=== PATIENT | female | born 1945 | race Two or more races ===

== ENCOUNTER 2017-01-05 16:44 | Emergency (ER) | payer MEDICARE, OTHER ==
[~2017-01-05] VITALS: Ht 162.6 cm; Wt 72.6 kg
[2017-01-05 16:45] VITALS: BP 100/56
[2017-01-05] MEDS ORDERED: LACT1CAP2 PO (17:56)
[2017-01-05] MEDS ORDERED: CHOL500016 PO (17:56)
[2017-01-05] MEDS ORDERED: DIVA500T2 PO (17:56)
[2017-01-05] MEDS ORDERED: PANT40TA5 PO (17:56)
[2017-01-05] MEDS ORDERED: POTASSIUM CHLO10 MEQ PO (17:56)
[2017-01-05] MEDS ORDERED: MULT1TAB90 PO (17:56)
[2017-01-05] MEDS ORDERED: METH113C6 TP (17:56)
[2017-01-05] MEDS ORDERED: CITA20TA5 PO (17:56)
[2017-01-05] MEDS ORDERED: POLY17PO3 PO (17:56)
[2017-01-05] MEDS ORDERED: RIVA1PAT22 TP (17:56)
[2017-01-05] MEDS ORDERED: DIVA250T PO (17:56)
[2017-01-05] MEDS ORDERED: RISP0.5T3 PO (17:56)
[2017-01-05] MEDS ORDERED: SELE180S3 TP (17:56)
[2017-01-05] MEDS ORDERED: MIRT15TA3 PO (17:56)
[2017-01-05] MEDS ORDERED: OLAN2.5T3 PO (17:56)
[2017-01-05] MEDS ORDERED: OLAN5TAB9 PO (17:56)
[2017-01-05] MEDS ORDERED: SENN-79 PO (17:56)
[2017-01-05] MEDS ORDERED: INSU100I17 SQ (17:56)
[2017-01-05] MEDS ORDERED: INSU100I27 SQ (17:56)
[2017-01-05] MEDS ORDERED: GABA-585 PO (17:56)
[2017-01-05] MEDS ORDERED: MAG-27 PO (17:56)
[2017-01-05] MEDS ORDERED: LINA5TAB4 PO (17:56)
[2017-01-05 18:37] LABS: BASO % 1 % (0-3); EOS % 4 % (0-3); HEMATOCRIT 36.2 % (36.0-47.0); HEMOGLOBIN 12.2 g/dL (12.0-15.5); LYMPH # 2.7 x10^3/uL (1.0-4.8); LYMPH % 41 % (24-48); MEAN CORPUSCULAR HEMOGLOBIN 34 pg (25-35); MEAN CORPUSCULAR HGB CONC 34 g/dL (31-37); MEAN CORPUSCULAR VOLUME 101 fL (79-100); MONO % 8 % (0-9); NEUT % 47 % (31-73); PLATELET COUNT 176 x10^3/uL (140-400); RED BLOOD COUNT 3.58 x10^6/uL (3.50-5.40); RED CELL DISTRIBUTION WIDTH 13.5 % (11.5-14.5); WHITE BLOOD COUNT 6.6 x10^3/uL (4.0-11.0)
[2017-01-05] MEDS ORDERED: LABETALOL 20 MG/4 ML DISP.SYRIN. IVP ONE (18:45)
[2017-01-05] MEDS ORDERED: MORPHINE SULFATE 10 MG/ML VIAL. IV ONE (18:45)
[2017-01-05 18:49] LABS: CALCIUM 8.8 mg/dL (8.5-10.1); CREATININE 0.8 mg/dL (0.6-1.0); GFR 70.9
[2017-01-05 19:04] LABS: ALBUMIN/GLOBULIN RATIO 0.7 (1.0-1.7); TOTAL BILIRUBIN 0.2 mg/dL (0.2-1.0); TOTAL PROTEIN 7.2 g/dL (6.4-8.2)
[2017-01-05 19:23] LABS: BILIRUBIN,URINE NEGATIVE (NEG); GLUCOSE,URINE >=1000 mg/dL (NEG); NITRITE,URINE NEGATIVE (NEG); PROTEIN,URINE NEGATIVE (NEG-TRACE)
[2017-01-05 19:46] LABS: BACTERIA,URINE 0 /HPF (0-FEW); RBC,URINE OCC /HPF (0-2); SQUAMOUS EPITHELIAL CELL,UR MOD /LPF
--- NOTE | 2017-01-05 20:20 | PHYS DOC ---
Past Medical History Past Medical History: Anemia, Arthritis, Bipolar, Constipation, Dementia, Diabetes-Type II, GERD, Hypertension, Schizophrenia, TIA, Other Additional Past Medical Histor: INSOMNIA Past Surgical History: Other Additional Past Surgical Histo: UNKNOWN Alcohol Use: None Drug Use: None Adult General Chief Complaint Chief Complaint: MECHANICAL FALL HPI HPI Patient is a 71 year old female who was brought to the ED by EMS from a living facility where she lives, after a fall. History is from EMS, and also from a report that was called the ED nurse. Patient reportedly has a history of schizophrenia and Alzheimer's. She was reported to be "not acting right". She also had a fall today and struck her right eyebrow. There are no details of the circumstances of the fall. Per report, the patient has been on amoxicillin for UTI since December 30. I did not get any details of what the altered mental status is or what the patient's baseline is. There was a call from the patient's intermediate stating that she can be "difficult". Med record was reviewed from the intermediate. Review of Systems Review of Systems Review of systems is not able to be obtained because the patient is not able to give a history Current Medications Current Medications Current Medications Medications (Trade) Dose Ordered Sig/Michi Start Time Stop Time Status Last Admin Dose Admin Labetalol HCl (Normodyne) 10 mg 1X ONCE 01/05/17 18:45 01/05/17 18:46 UNV Morphine Sulfate 5 mg 1X ONCE 01/05/17 18:45 01/05/17 18:46 UNV Allergies Allergies Allergies Coded Allergies Type Severity Reaction Last Updated Verified No Known Drug Allergies 01/05/17 No Physical Exam Physical Exam Constitutional: Alert female, eyes open, talking, but she is not answering questions, she is just having a conversation with herself. Moving all extremities symmetrically without focal findings but she is not responding to any requests or commands. HENT: Normocephalic, very mild contusion of the right eyebrow, no bleeding, area is mildly tender to palpation but no bony deformity palpable,, bilateral external ears normal, oropharynx moist, no oral exudates, nose normal. [] Eyes: PERRLA, EOMI, conjunctiva normal, no discharge. [] Neck: Normal range of motion, no tenderness, no stridor. [] Cardiovascular:Heart rate regular rhythm, no murmur [] Lungs & Thorax: Bilateral breath sounds clear to auscultation [] Abdomen: Bowel sounds normal, soft, no tenderness, no masses, no pulsatile masses. [] Skin: Warm, dry, no erythema, no rash. [] Extremities: No tenderness, no cyanosis, no clubbing, ROM intact, no edema. [] Neurologic: Alert, normal motor function, no focal deficits noted. [] Current Patient Data Vital Signs Vital Signs Date Time Temp Pulse Resp B/P (MAP) Pulse Ox O2 Delivery O2 Flow Rate FiO2 01/05/17 17:15 58 97 01/05/17 16:44 18 100/56 (71) Room Air Lab Values Laboratory Tests Test 01/05/17 18:27 01/05/17 19:13 White Blood Count 6.6 x10^3/uL (4.0-11.0) Red Blood Count 3.58 x10^6/uL (3.50-5.40) Hemoglobin 12.2 g/dL (12.0-15.5) Hematocrit 36.2 % (36.0-47.0) Mean Corpuscular Volume 101 fL (79-100) H Mean Corpuscular Hemoglobin 34 pg (25-35) Mean Corpuscular Hemoglobin Concent 34 g/dL (31-37) Red Cell Distribution Width 13.5 % (11.5-14.5) Platelet Count 176 x10^3/uL (140-400) Neutrophils (%) (Auto) 47 % (31-73) Lymphocytes (%) (Auto) 41 % (24-48) Monocytes (%) (Auto) 8 % (0-9) Eosinophils (%) (Auto) 4 % (0-3) H Basophils (%) (Auto) 1 % (0-3) Neutrophils # (Auto) 3.1 x10^3uL (1.8-7.7) Lymphocytes # (Auto) 2.7 x10^3/uL (1.0-4.8) Monocytes # (Auto) 0.6 x10^3/uL (0.0-1.1) Eosinophils # (Auto) 0.2 x10^3/uL (0.0-0.7) Basophils # (Auto) 0.0 x10^3/uL (0.0-0.2) Sodium Level 142 mmol/L (136-145) Potassium Level 4.0 mmol/L (3.5-5.1) Chloride Level 105 mmol/L (98-107) Carbon Dioxide Level 31 mmol/L (21-32) Anion Gap 6 (6-14) Blood Urea Nitrogen 11 mg/dL (7-20) Creatinine 0.8 mg/dL (0.6-1.0) Estimated GFR (Cockcroft-Gault) 70.9 BUN/Creatinine Ratio 14 (6-20) Glucose Level 293 mg/dL (70-99) H Calcium Level 8.8 mg/dL (8.5-10.1) Total Bilirubin 0.2 mg/dL (0.2-1.0) Aspartate Amino Transferase (AST) 9 U/L (15-37) L Alanine Aminotransferase (ALT) 11 U/L (14-59) L Alkaline Phosphatase 76 U/L (46-116) Total Protein 7.2 g/dL (6.4-8.2) Albumin 3.0 g/dL (3.4-5.0) L Albumin/Globulin Ratio 0.7 (1.0-1.7) L Urine Collection Type Unknown Urine Color Yellow Urine Clarity Clear Urine pH 7.0 Urine Specific [place] 1.025 Urine Protein Negative mg/dL (NEG-TRACE) Urine Glucose (UA) >=1000 mg/dL (NEG) Urine Ketones (Stick) Negative mg/dL (NEG) Urine Blood Negative (NEG) Urine Nitrite Negative (NEG) Urine Bilirubin Negative (NEG) Urine Urobilinogen Dipstick 1.0 mg/dL (0.2 mg/dL) Urine Leukocyte Esterase Negative (NEG) Urine RBC Occ /HPF (0-2) Urine WBC 1-4 /HPF (0-4) Urine Squamous Epithelial Cells Mod /LPF Urine Bacteria 0 /HPF (0-FEW) Urine Hyaline Casts Moderate /HPF Urine Mucus Mod /LPF Laboratory Tests 01/05/17 18:27 Laboratory Tests 01/05/17 18:27 EKG EKG [] Radiology/Procedures Radiology/Procedures [] Course & Med Decision Making Course & Med Decision Making Pertinent Labs and Imaging studies reviewed. (See chart for details) 71-year-old female presents by EMS for evaluation after she had a fall, circumstances unknown, and also "not acting like herself". Patient does come with a history of schizophrenia and dementia although I do not know what her baseline is. She is verbal today. She is relatively cooperative and mushy is disturbed and then she screams and fights vigorously. I ordered a CT scan but she was not able to hold still for the CT scan and I did not feel that her injury merited sedating her first scan so we deferred that. Because she reportedly has been taking amoxicillin for 6 days for UTI diagnosis, I felt it was important to confirm whether or not she still has the UTI. Straight catheter was done and her urinalysis is negative. Labs really quite unremarkable except for some hyperglycemia. The patient remained very alert, talking to herself, attempting to get out of bed over and over. She certainly does not seem to be lethargic or with a decreased level of consciousness. I believe the patient is stable for discharge back to her intermediate. EMS transported her back with instructions. See instructions for plan. [] Dragon Disclaimer Dragon Disclaimer This electronic medical record was generated, in whole or in part, using a voice recognition dictation system. Departure Departure Impression: Primary Impression: Fall Additional Impressions: Contusion of right eyebrow Behavior disturbance Disposition: 01 HOME, SELF-CARE Condition: STABLE Referrals: WILLIAM ROMANO MD (PCP) Additional Instructions: Today, lab tests were remarkable for elevated blood sugar at 293. Please use sliding scale insulin if available. Contact primary care physician Friday morning to address hyperglycemia. Urinalysis was negative today. Complete antibiotics as prescribed. Today in the ED, we did not find any concerning medical conditions. We attempted to do CT scan of the head and facial bones with the patient was not able to cooperate with CT scanning, and I do not believe it is medically necessary to chemically sedate and restrain her for this. Therefore, CT scanning was deferred at this time. Problem Qualifiers SHAHAB CARLISLE MD Jan 05, 2017 20:20
== END 2017-01-05 20:55 | disposition home or self-care (01) ==
LOC: ER 16:44
DX: F02.81 Dementia in other diseases classified elsewhere, unspecified severity, with behavioral disturbance (principal); S00.11XA Contusion of right eyelid and periocular area, initial encounter; F20.9 Schizophrenia, unspecified; G30.9 Alzheimer's disease, unspecified; E11.9 Type 2 diabetes mellitus without complications; I10 Essential (primary) hypertension; F91.9 Conduct disorder, unspecified; K21.9 Gastro-esophageal reflux disease without esophagitis; Z86.73 Personal history of transient ischemic attack (TIA), and cerebral infarction without residual deficits; W18.39XA Other fall on same level, initial encounter; Y93.89 Activity, other specified; Y99.8 Other external cause status; Y92.89 Other specified places as the place of occurrence of the external cause
CPT/HCPCS: 36415; 80053; 81001; 85025; 99284; P9612

== ENCOUNTER 2017-01-08 02:08 | Inpatient (IN) | payer MEDICARE, OTHER ==
[~2017-01-08] VITALS: Ht 154.9 cm; Wt 60.6 kg
[~2017-01-08 02:08] MED LIST: CHOL500016 PO; CITA20TA5 PO; DIVA250T PO; DIVA500T2 PO; GABA-585 PO; INSU100I17 SQ; INSU100I27 SQ; LACT1CAP2 PO; LINA5TAB4 PO; MAG-27 PO; METH113C6 TP; MIRT15TA3 PO; MULT1TAB90 PO; OLAN2.5T3 PO; OLAN5TAB9 PO; PANT40TA5 PO; POLY17PO3 PO; POTASSIUM CHLO10 MEQ PO; RISP0.5T3 PO; RIVA1PAT22 TP; SELE180S3 TP; SENN-79 PO
[2017-01-08 02:45] LABS: BASO # 0.1 x10^3/uL (0.0-0.2); BASO % 1 % (0-3); EOS % 0 % (0-3); HEMATOCRIT 38.7 % (36.0-47.0); HEMOGLOBIN 13.1 g/dL (12.0-15.5); LYMPH # 1.4 x10^3/uL (1.0-4.8); LYMPH % 13 % (24-48); MEAN CORPUSCULAR HEMOGLOBIN 34 pg (25-35); MEAN CORPUSCULAR HGB CONC 34 g/dL (31-37); MEAN CORPUSCULAR VOLUME 100 fL (79-100); MONO % 8 % (0-9); NEUT % 78 % (31-73); PLATELET COUNT 177 x10^3/uL (140-400); RED BLOOD COUNT 3.87 x10^6/uL (3.50-5.40); RED CELL DISTRIBUTION WIDTH 14.1 % (11.5-14.5); WHITE BLOOD COUNT 10.9 x10^3/uL (4.0-11.0)
[2017-01-08 02:56] LABS: BILIRUBIN,URINE SMALL (NEG); GLUCOSE,URINE >=1000 mg/dL (NEG); NITRITE,URINE POSITIVE (NEG); PH,URINE 6.5; PROTEIN,URINE 30 mg/dL (NEG-TRACE)
[2017-01-08 02:58] LABS: CREATININE 0.8 mg/dL (0.6-1.0); GFR 70.9; POTASSIUM 4.4 mmol/L (3.5-5.1)
[2017-01-08 03:04] LABS: ALBUMIN 2.9 g/dL (3.4-5.0); ALBUMIN/GLOBULIN RATIO 0.6 (1.0-1.7); TOTAL BILIRUBIN 0.5 mg/dL (0.2-1.0); TOTAL PROTEIN 7.4 g/dL (6.4-8.2)
[2017-01-08 03:05] LABS: RBC,URINE >40 /HPF (0-2); WBC,URINE TNTC /HPF (0-4)
[2017-01-08 03:06] LABS: BACTERIA,URINE MANY /HPF (0-FEW); SQUAMOUS EPITHELIAL CELL,UR OCC /LPF
--- NOTE | 2017-01-08 03:30 | RAD ---
RS Compliance Statement: One or more of the following individualized dose reduction techniques were utilized for this examination: 1. Automated exposure control 2. Adjustment of the mA and/or kV according to patient size 3. Use of iterative reconstruction technique CT head without contrast 01/08/2017 3:17 AM INDICATION: Altered mental status COMPARISON: Head CT June 11, 2016 TECHNIQUE: Multiple axial CT images of the head were obtained from skull base through the vertex without intravenous contrast. FINDINGS: Head: Ventricles, sulci and basal cisterns are prominent, stable. Low attenuation the periventricular white matter is compatible with chronic small vessel ischemic changes. Remote lacunar infarct is identified in the left putamen. There is no hydrocephalus. Abreu-white matter differentiation is normal. There is no acute intracranial hemorrhage. There is no mass, mass effect or midline shift. Posterior fossa is normal in appearance. Visualized portions of the orbits are normal. Small amount of fluid is noted in the left posterior ethmoid air cells. Otherwise, paranasal sinuses are well aerated. Mastoid air cells are well aerated. Scalp and calvaria are normal. IMPRESSION: No acute intracranial hemorrhage. Moderate parenchymal volume loss with low attenuation the periventricular white matter compatible with chronic small vessel ischemic changes, stable. Remote lacunar infarct is noted in the left putamen. Electronically signed by: Ana Medina MD (01/08/2017 3:27 AM) [facility]
--- NOTE | 2017-01-08 03:39 | PHYS DOC ---
Past Medical History Past Medical History: Anemia, Arthritis, Bipolar, Constipation, Dementia, Diabetes-Type II, GERD, Hypertension, Schizophrenia, TIA, Other Additional Past Medical Histor: INSOMNIA Past Surgical History: Other Additional Past Surgical Histo: UNKNOWN Alcohol Use: None Drug Use: None Adult General Chief Complaint Chief Complaint: ALTERED MENTAL STATUS HPI HPI History and physical exam unobtainable secondary to the patient's dementia and schizophrenia. Patient is a 71 year old female with a history significant for schizophrenia, bipolar, dementia, urinary tract infection, hypertension, myasthenia, presents to the ER today secondary to altered mental status. Patient came from the nursing facility and was noted to be lethargic earlier this morning. Approximate 1:15 AM the facility checked on the patient and they felt that she was lethargic and not responding appropriately. They checked her blood sugar and her blood sugar 320 at that time. Per the report from the facility she has not been able to eat anything for the last 48 hours and she's had multiple falls over the last several days. Upon arrival by EMS EMS reported that she was somnolent and difficult to arouse. Her pulse ox was 70% on room air at that time. There has been no episodes of vomiting or diarrhea noted, no fevers, no cough. Review of systems: Unable to obtain secondary to patient's dementia Physical exam: Constitutional: Well developed, well nourished, no acute distress, non-toxic appearance. HENT: Normocephalic, atraumatic, bilateral external ears normal Eyes: PERRLA, EOMI, conjunctiva normal, no discharge. Neck: Normal range of motion, no tenderness, supple, no stridor. No evidence of meningitis. Cardiovascular:Heart rate regular rhythm Lungs & Thorax: Bilateral breath sounds clear to auscultation Abdomen: Bowel sounds normal, soft, no tenderness, no masses, no pulsatile masses. Skin: Warm, dry, no erythema, no rash. Back: No tenderness, no CVA tenderness. Extremities: No tenderness, no cyanosis, no clubbing, ROM intact, no edema. Neurologic: Somnolent. Mumbles answers., Psychologic: Flat affect Assessment and plan: 71-year-old female who presents here today secondary to altered mental status. Patient has recently been on antibiotics for urinary tract infection. Patient was seen here in the ED approximately 2-3 days ago secondary to a fall. At that time patient was agitated and was refusing a CT scan. Patient not appear lethargic during her last ER visit and the decision was made to defer the CT scan as the patient clinically did not appear to need it. Patient presents to the ER today secondary to lethargic behavior while the custodial 1:15 in the morning. Patient's ER workup is been significant for a urinary tract infection. Given that the patient was recently on antibiotics and still has significant amount of wbc's and bacteria in her urine I feel the patient will be best served by being admitted to the hospital for IV antibiotics to treat a urinary tract infection that has failed outpatient antibiotic therapy. Patient's labs were otherwise been unremarkable. Patient has been given a liter of normal saline to hydrate her. Patient had a pulse ox performed on room air that was between 88 and 92%. Patient does not appear tachypneic and does not appear to be uncomfortable. Patient does not utilize home oxygen at the facility. I do not feel that the patient is option of this time. Patient has CT scan of her head which did not show any acute intracranial hemorrhage. There was a moderate amount of parenchymal volume loss with low attenuation in the periventricular white matter which was compatible with chronic small vessel ischemic changes. There was a remote lacunar infarct that was noted in the left putamen. Patient's chest x-ray showed normal heart no infiltrates or effusions as interpreted by ER physician. Patient will be started on IV Rocephin. Patient will be admitted to the hospital for further evaluation and treatment of her altered mental status and urinary tract infection. Allergies Allergies Allergies Coded Allergies Type Severity Reaction Last Updated Verified No Known Drug Allergies 01/05/17 No Current Patient Data Vital Signs Vital Signs Date Time Temp Pulse Resp B/P (MAP) Pulse Ox O2 Delivery O2 Flow Rate FiO2 01/08/17 02:08 97.9 70 16 141/74 (96) 99 NonRebreather Mask 15.0 97.9 Lab Values Laboratory Tests Test 01/08/17 02:25 01/08/17 02:45 White Blood Count 10.9 x10^3/uL (4.0-11.0) Red Blood Count 3.87 x10^6/uL (3.50-5.40) Hemoglobin 13.1 g/dL (12.0-15.5) Hematocrit 38.7 % (36.0-47.0) Mean Corpuscular Volume 100 fL (79-100) Mean Corpuscular Hemoglobin 34 pg (25-35) Mean Corpuscular Hemoglobin Concent 34 g/dL (31-37) Red Cell Distribution Width 14.1 % (11.5-14.5) Platelet Count 177 x10^3/uL (140-400) Neutrophils (%) (Auto) 78 % (31-73) H Lymphocytes (%) (Auto) 13 % (24-48) L Monocytes (%) (Auto) 8 % (0-9) Eosinophils (%) (Auto) 0 % (0-3) Basophils (%) (Auto) 1 % (0-3) Neutrophils # (Auto) 8.5 x10^3uL (1.8-7.7) H Lymphocytes # (Auto) 1.4 x10^3/uL (1.0-4.8) Monocytes # (Auto) 0.9 x10^3/uL (0.0-1.1) Eosinophils # (Auto) 0.0 x10^3/uL (0.0-0.7) Basophils # (Auto) 0.1 x10^3/uL (0.0-0.2) Sodium Level 141 mmol/L (136-145) Potassium Level 4.4 mmol/L (3.5-5.1) Chloride Level 104 mmol/L (98-107) Carbon Dioxide Level 26 mmol/L (21-32) Anion Gap 11 (6-14) Blood Urea Nitrogen 14 mg/dL (7-20) Creatinine 0.8 mg/dL (0.6-1.0) Estimated GFR (Cockcroft-Gault) 70.9 BUN/Creatinine Ratio 18 (6-20) Glucose Level 326 mg/dL (70-99) H Calcium Level 9.0 mg/dL (8.5-10.1) Total Bilirubin 0.5 mg/dL (0.2-1.0) Aspartate Amino Transferase (AST) 66 U/L (15-37) H Alanine Aminotransferase (ALT) 33 U/L (14-59) Alkaline Phosphatase 105 U/L (46-116) Total Protein 7.4 g/dL (6.4-8.2) Albumin 2.9 g/dL (3.4-5.0) L Albumin/Globulin Ratio 0.6 (1.0-1.7) L Urine Collection Type Unknown Urine Color [place] Urine Clarity Cloudy Urine pH 6.5 Urine Specific [place] 1.025 Urine Protein 30 mg/dL (NEG-TRACE) Urine Glucose (UA) >=1000 mg/dL (NEG) Urine Ketones (Stick) 40 mg/dL (NEG) Urine Blood Moderate (NEG) Urine Nitrite Positive (NEG) Urine Bilirubin Small (NEG) Urine Urobilinogen Dipstick 1.0 mg/dL (0.2 mg/dL) Urine Leukocyte Esterase Large (NEG) Urine RBC >40 /HPF (0-2) Urine WBC Tntc /HPF (0-4) Urine Squamous Epithelial Cells Occ /LPF Urine Bacteria Many /HPF (0-FEW) Laboratory Tests 01/08/17 02:25 Laboratory Tests 01/08/17 02:25 EKG EKG [] Radiology/Procedures Radiology/Procedures [] Course & Med Decision Making Course & Med Decision Making Pertinent Labs and Imaging studies reviewed. (See chart for details) [] Dragon Disclaimer Dragon Disclaimer This electronic medical record was generated, in whole or in part, using a voice recognition dictation system. Departure Departure Impression: Primary Impression: Altered mental status Additional Impression: Urinary tract infection Disposition: ADMITTED INPATIENT Admitting Physician: Other (reusch) Condition: STABLE Referrals: WILLIAM ROMANO MD (PCP) Problem Qualifiers DARA EDWARD MD Jan 08, 2017 03:39
[2017-01-08] MEDS ORDERED: ACETAMINOPHEN 325 MG TABLET. PO PRN (03:45)
[2017-01-08] MEDS ORDERED: ONDANSETRON PF 4 MG/2 ML VIAL. IV PRN (03:45)
[2017-01-08 05:15] VITALS: BP 141/78
[2017-01-08] MEDS ORDERED: PNEUMOCOCCAL VAX SCREEN BY RX. MC PRN (05:45)
[2017-01-08] MEDS ORDERED: INFLUENZA VAX SCREEN BY RX. MC PRN (05:45)
[2017-01-08] MEDS ORDERED: OMEP20CA9 PO (05:54)
[2017-01-08] MEDS ORDERED: MAGN2400 PO (06:00)
[2017-01-08 07:00] VITALS: BP_SYST 140; BP_SYST 150; BP_DIAS 64; BP_DIAS 72
--- NOTE | 2017-01-08 07:17 | RAD ---
Portable chest, 01/08/2017: History: Hypoxia The heart size and pulmonary vascularity are normal. There is tortuosity of the thoracic aorta. There is minimal linear scarring or atelectasis in the left base. No pulmonary consolidation is seen. There is no evidence of pleural fluid. Moderate hypertrophic spurring is present in the spine. IMPRESSION: 1. Minimal left basilar linear scarring or atelectasis. 2. Aortic atherosclerosis.
--- NOTE | 2017-01-08 11:11 | EKG ---
[facility] [address] [place] [address] Test Date: 2017-01-08 Test Time: 02:23:36 Pat Name: MARLENY ARELLANO Department: Room: 646 1 Gender: F Hospitality Specialist: : [id number] Requested By: DARA EDWARD Order Number: [id number] Reading MD: Brendon Piña Measurements Intervals [place] Rate: 71 P: 26 OK: 150 QRS: -11 QRSD: 80 T: 25 QT: 420 QTc: 457 Interpretive Statements SINUS RHYTHM LEFTWARD AXIS MILD NONSPECIFIC ST-T WAVE CHANGES. RI6.01 No previous ECG available for comparison Electronically Signed On 01-08-2017 16:03:26 COMFORT STATION SUPERVISOR by Brendon Piña
[2017-01-08 11:24] VITALS: BP 155/73
[2017-01-08 15:51] VITALS: BP 137/76
[2017-01-08] MEDS ORDERED: HALOPERIDOL LACTATE 5 MG/ML VIAL. IVP PRN (16:15)
[2017-01-08] MEDS ORDERED: DEXTROSE 50% 25 GM / 50ML DISP.SYRIN. IV PRN (16:15)
[2017-01-08] MEDS ORDERED: OLANZapine 2.5 MG TABLET PO PRN (16:15)
[2017-01-08] MEDS: PANTOPRAZOLE 40 MG TABLET.DR. PO SCH (16:30)
[2017-01-08] MEDS: GABAPENTIN 100 MG CAPSULE. PO SCH ×2 (17:00→21:27)
[2017-01-08] MEDS: CITALOPRAM 20 MG TABLET. PO SCH (17:00)
--- NOTE | 2017-01-08 17:17 | HP ---
ADMIT DATE: 01/08/2017 CHIEF COMPLAINT: Altered mental status. HISTORY OF PRESENT ILLNESS: The patient is a 71-year-old woman, currently residing in a fci secondary to psychiatric issues and dementia, who presented to the Emergency Room with apparent altered mental status. She was noted to be more lethargic yesterday morning. She did not have any other focal symptoms. Her blood sugar was checked and it was 320. However, with multiple falls in recent days as well as poor p.o. intake and pulse ox at 70, she was deemed appropriate for further workup in the Emergency Room. Further details are not available. The patient is unable to communicate any details due to mental status. PAST MEDICAL HISTORY: As obtained from chart, includes diabetes, anemia, hypertension, TIA, bipolar mood disorder, schizophrenia, dementia. FAMILY HISTORY: Not available. SOCIAL HISTORY: Living in a fci. No toxic habits. ALLERGIES: No known drug allergies. MEDICATIONS: MAR reconciled with home medications. REVIEW OF SYSTEMS: Unable to obtain secondary to mental status. PHYSICAL EXAMINATION: VITAL SIGNS: From today show a blood pressure of 137/76, heart rate of 77, respiratory rate at 16. She is afebrile. GENERAL: This is a 71-year-old well-nourished woman, sleeping, waking slowly, only grunts to verbal input, does not follow commands. HEENT: Negative for scleral icterus. Oral mucosa is dry. NECK: Supple. LUNGS: Fairly clear anteriorly. HEART: Has regular rate and rhythm. ABDOMEN: Has positive bowel sounds, soft, nontender. EXTREMITIES: Show no edema. SKIN: Warm, soft and dry without any rash. LABORATORY DATA: CBC with a WBC of 10.9, hemoglobin 13.1, platelets of 177. Chemistries with a BUN and creatinine of 14 and 0.8, normal electrolytes, glucose at 326. LFTs essentially within normal limits, say for mildly elevated AST at 66, albumin at 2.9. Urine with TNTC wbc, greater than 40 rbc and many bacteria. IMAGING STUDIES: With a head CT showing no acute intracranial hemorrhage, moderate parenchymal volume loss. Chest x-ray, minimal left basilar linear scarring or atelectasis. ASSESSMENT AND PLAN: The patient is a 71-year-old woman with apparent change in mental status at her fci. Her baseline is unclear at this time. The symptoms are most likely related to her urinary tract infection. She has been started on empiric antibiotics, we will continue those. Culture is pending. She does have a history of bipolar and schizophrenia and is on multiple medications. When her mental status clears sufficiently, we will restart all p.o. medications for this. The patient does have poorly controlled diabetes. This may be influenced by current infection. We will continue home regimen at insulin sliding scale. If with recovery from infection, blood glucoses remain high, adjustment will be indicated. She will be started on Lovenox for prophylaxis. KELLE TEIXEIRA MD DR: UR/nts JOB#: [id number] / [id number] WILLIAM Hernandez MD MTDD
[2017-01-08] MEDS: INSULIN ASPART 300 UNITS/3 ML INSULN.PEN SQ SCH (18:17)
[2017-01-08] MEDS: MULTIVIT INFUSN,ADULT 4,VIT K 10 ML, THIAMINE 100 MG, FOLIC ACID 1 MG in IV NORMAL SALI... IV SCH (18:24)
[2017-01-08 19:21] VITALS: BP 108/66
[2017-01-08] MEDS: OLANZapine 5 MG TABLET PO SCH (21:26)
[2017-01-08] MEDS: DIVALPROEX DELAYED RELEASE 500 MG TABLET.DR. PO SCH (21:26)
[2017-01-08] MEDS: risperiDONE 0.25 MG TABLET. PO SCH (21:27)
[2017-01-08] MEDS: MIRTAZAPINE 15 MG TABLET PO SCH (21:27)
[2017-01-08 23:36] VITALS: BP 108/55
[2017-01-09 03:29] VITALS: BP 114/67
[2017-01-09 06:45] VITALS: BP 135/71
[2017-01-09 06:54] LABS: BASO % 0 % (0-3); EOS % 2 % (0-3); HEMATOCRIT 34.6 % (36.0-47.0); HEMOGLOBIN 11.7 g/dL (12.0-15.5); LYMPH # 2.5 x10^3/uL (1.0-4.8); LYMPH % 31 % (24-48); MEAN CORPUSCULAR HEMOGLOBIN 34 pg (25-35); MEAN CORPUSCULAR HGB CONC 34 g/dL (31-37); MEAN CORPUSCULAR VOLUME 101 fL (79-100); MONO % 10 % (0-9); NEUT % 57 % (31-73); PLATELET COUNT 155 x10^3/uL (140-400); RED BLOOD COUNT 3.42 x10^6/uL (3.50-5.40); RED CELL DISTRIBUTION WIDTH 14.1 % (11.5-14.5); WHITE BLOOD COUNT 8.2 x10^3/uL (4.0-11.0)
[2017-01-09 07:02] LABS: ALBUMIN 2.5 g/dL (3.4-5.0); ALBUMIN/GLOBULIN RATIO 0.6 (1.0-1.7); CALCIUM 8.5 mg/dL (8.5-10.1); CREATININE 0.6 mg/dL (0.6-1.0); GFR 98.8; POTASSIUM 3.6 mmol/L (3.5-5.1); TOTAL BILIRUBIN 0.8 mg/dL (0.2-1.0); TOTAL PROTEIN 6.4 g/dL (6.4-8.2)
[2017-01-09] MEDS: PANTOPRAZOLE 40 MG TABLET.DR. PO SCH (07:30)
[2017-01-09] MEDS: INSULIN ASPART 300 UNITS/3 ML INSULN.PEN SQ SCH ×3 (08:00→17:00)
[2017-01-09] MEDS: LINAGLIPTIN 5 MG TABLET PO SCH (09:00)
[2017-01-09] MEDS: DIVALPROEX DELAYED RELEASE 500 MG TABLET.DR. PO SCH ×2 (09:00→23:34)
[2017-01-09] MEDS: CITALOPRAM 20 MG TABLET. PO SCH (09:00)
[2017-01-09] MEDS: risperiDONE 0.25 MG TABLET. PO SCH ×2 (09:00→23:33)
[2017-01-09] MEDS: RIVASTIGMINE 4.6MG PATCH. TD SCH (09:00)
[2017-01-09] MEDS: POLYETHYLENE GLYCOL 3350 17 GM PACKET. PO SCH (09:00)
[2017-01-09] MEDS: GABAPENTIN 100 MG CAPSULE. PO SCH ×3 (09:00→23:33)
[2017-01-09 10:30] VITALS: BP 115/61
[2017-01-09] MEDS: MULTIVIT INFUSN,ADULT 4,VIT K 10 ML, THIAMINE 100 MG, FOLIC ACID 1 MG in IV NORMAL SALI... IV SCH (11:50)
[2017-01-09] MEDS: INSULIN DETEMIR 300 UNITS/3 ML INSULN.PEN. SQ SCH ×2 (11:57→23:30)
[2017-01-09 14:47] VITALS: BP 120/60
--- NOTE | 2017-01-09 16:22 | PDOC ---
PROGRESS NOTES Chief Complaint Chief Complaint Acute mental status changes ASSESSMENT AND PLAN; 1. Encephalopathy: toxic 2/2 urisepsis. resolving 2. UTI: cont empiric ceftriax for now; awaiting final urine cult and sens 3. Schizophrenia: mult psych meds PO, restarted. 4. Nutrition: on reg diet, monitor PO intake 5. Dispo: back to [place] in AM History of Present Illness History of Present Illness alert, responding, but alternating appropriate short responses with unintelligible mumbling Vitals Vitals Vital Signs Date Time Temp Pulse Resp B/P (MAP) Pulse Ox O2 Delivery O2 Flow Rate FiO2 01/09/17 14:47 97.8 54 17 120/60 (80) 96 Room Air 97.8 Physical Exam General: Alert, Cooperative, No acute distress Heart: Regular rate Lungs: Clear Abdomen: Normal bowel sounds, Soft, No tenderness Extremities: No edema Skin: No rashes Labs LABS Laboratory Tests Test 01/08/17 22:00 01/09/17 05:20 01/09/17 11:11 Nasal Screen MRSA (PCR) Negative (Negative) White Blood Count 8.2 x10^3/uL (4.0-11.0) Red Blood Count 3.42 x10^6/uL (3.50-5.40) Hemoglobin 11.7 g/dL (12.0-15.5) Hematocrit 34.6 % (36.0-47.0) Mean Corpuscular Volume 101 fL (79-100) Mean Corpuscular Hemoglobin 34 pg (25-35) Mean Corpuscular Hemoglobin Concent 34 g/dL (31-37) Red Cell Distribution Width 14.1 % (11.5-14.5) Platelet Count 155 x10^3/uL (140-400) Neutrophils (%) (Auto) 57 % (31-73) Lymphocytes (%) (Auto) 31 % (24-48) Monocytes (%) (Auto) 10 % (0-9) Eosinophils (%) (Auto) 2 % (0-3) Basophils (%) (Auto) 0 % (0-3) Neutrophils # (Auto) 4.6 x10^3uL (1.8-7.7) Lymphocytes # (Auto) 2.5 x10^3/uL (1.0-4.8) Monocytes # (Auto) 0.8 x10^3/uL (0.0-1.1) Eosinophils # (Auto) 0.2 x10^3/uL (0.0-0.7) Basophils # (Auto) 0.0 x10^3/uL (0.0-0.2) Sodium Level 145 mmol/L (136-145) Potassium Level 3.6 mmol/L (3.5-5.1) Chloride Level 109 mmol/L (98-107) Carbon Dioxide Level 27 mmol/L (21-32) Anion Gap 9 (6-14) Blood Urea Nitrogen 11 mg/dL (7-20) Creatinine 0.6 mg/dL (0.6-1.0) Estimated GFR (Cockcroft-Gault) 98.8 BUN/Creatinine Ratio 18 (6-20) Glucose Level 170 mg/dL (70-99) Calcium Level 8.5 mg/dL (8.5-10.1) Total Bilirubin 0.8 mg/dL (0.2-1.0) Aspartate Amino Transf (AST/SGOT) 82 U/L (15-37) Alanine Aminotransferase (ALT/SGPT) 67 U/L (14-59) Alkaline Phosphatase 111 U/L (46-116) Total Protein 6.4 g/dL (6.4-8.2) Albumin 2.5 g/dL (3.4-5.0) Albumin/Globulin Ratio 0.6 (1.0-1.7) Glucose (Fingerstick) 159 mg/dL (70-99) KELLE TEIXEIRA MD Jan 09, 2017 16:22
[2017-01-09] MEDS ORDERED: cefTRIAXone IV Push 1 GM VIAL. IVP SCH (17:00)
[2017-01-09] MEDS: MIRTAZAPINE 15 MG TABLET PO SCH (23:33)
[2017-01-09] MEDS: OLANZapine 5 MG TABLET PO SCH (23:33)
[2017-01-09 23:48] VITALS: BP 109/61
[2017-01-10 03:11] VITALS: BP 106/46
[2017-01-10] MEDS: PANTOPRAZOLE 40 MG TABLET.DR. PO SCH (07:30)
[2017-01-10] MEDS: INSULIN ASPART 300 UNITS/3 ML INSULN.PEN SQ SCH ×2 (08:00→12:00)
[2017-01-10] MEDS: GABAPENTIN 100 MG CAPSULE. PO SCH ×2 (09:00→14:00)
[2017-01-10] MEDS: LINAGLIPTIN 5 MG TABLET PO SCH (09:00)
[2017-01-10] MEDS: risperiDONE 0.25 MG TABLET. PO SCH (09:00)
[2017-01-10] MEDS: DIVALPROEX DELAYED RELEASE 500 MG TABLET.DR. PO SCH (09:00)
[2017-01-10] MEDS: CITALOPRAM 20 MG TABLET. PO SCH (09:00)
[2017-01-10] MEDS: RIVASTIGMINE 4.6MG PATCH. TD SCH (09:00)
[2017-01-10] MEDS: POLYETHYLENE GLYCOL 3350 17 GM PACKET. PO SCH (09:00)
[2017-01-10 09:30] LABS: BASO % 0 % (0-3); EOS % 4 % (0-3); HEMOGLOBIN 11.7 g/dL (12.0-15.5); LYMPH # 3.1 x10^3/uL (1.0-4.8); LYMPH % 42 % (24-48); MEAN CORPUSCULAR HEMOGLOBIN 33 pg (25-35); MEAN CORPUSCULAR HGB CONC 34 g/dL (31-37); MEAN CORPUSCULAR VOLUME 99 fL (79-100); MONO % 11 % (0-9); NEUT % 43 % (31-73); PLATELET COUNT 162 x10^3/uL (140-400); RED BLOOD COUNT 3.52 x10^6/uL (3.50-5.40); RED CELL DISTRIBUTION WIDTH 13.8 % (11.5-14.5); WHITE BLOOD COUNT 7.3 x10^3/uL (4.0-11.0)
[2017-01-10 09:57] LABS: ALBUMIN 2.5 g/dL (3.4-5.0); ALBUMIN/GLOBULIN RATIO 0.6 (1.0-1.7); CALCIUM 8.7 mg/dL (8.5-10.1); CREATININE 0.5 mg/dL (0.6-1.0); POTASSIUM 3.1 mmol/L (3.5-5.1); TOTAL BILIRUBIN 0.4 mg/dL (0.2-1.0); TOTAL PROTEIN 6.5 g/dL (6.4-8.2)
[2017-01-10 11:34] VITALS: BP 105/40
--- NOTE | 2017-01-11 19:28 | DS ---
DATE OF DISCHARGE: 01/10/2017 CHIEF COMPLAINT: Acute mental status changes. HOSPITAL COURSE: The patient is a 71-year-old longterm patient with schizophrenia, who presented to the Emergency Room with obtundation. She was found with UTI, which was initially treated empirically with ceftriaxone. She, however, was found to have E. coli resistant to penicillin and cephalosporins and was therefore switched to ciprofloxacin for an additional 3 days. Despite infection, her mental status actually significantly improved within 24 hours of IV hydration. She required several doses of IV Haldol to allow her to rest comfortably and not be agitated. She was discharged back to longterm when she is stabilize. PHYSICAL EXAMINATION: VITAL SIGNS: Show a blood pressure of 105/40, heart rate of 54, respiratory rate 17. She is afebrile. GENERAL: This is a well-nourished 71-year-old woman, alert and not oriented, in no acute distress. LUNGS: Clear. HEART: Has regular rate and rhythm. ABDOMEN: Positive bowel sounds. EXTREMITIES: No edema. DISCHARGE DIAGNOSES: Urinary tract infection, sepsis. DISCHARGE DISPOSITION: To longterm. DISCHARGE CONDITION: Improved. DISCHARGE MEDICATIONS: Please refer to MAR. DISCHARGE INSTRUCTIONS: The patient will follow up with PCP at longterm. Greater than 30 minutes were spent in arranging her discharge. KELLE TEIXEIRA MD DR: UR/nts JOB#: [id number] / [id number] WILLIAM Hernandez MD MTDD
== END 2017-01-10 14:42 | DRG 871 ==
LOC: ER 02:08 → 6 SOUTH 03:32
PROVIDERS: ADMIT Internal Medicine Hematology & Oncology; ATTEND Internal Medicine Hematology & Oncology
DX: A41.9 Sepsis, unspecified organism (principal); G92 Toxic encephalopathy; E11.65 Type 2 diabetes mellitus with hyperglycemia; F03.90 Unspecified dementia, unspecified severity, without behavioral disturbance, psychotic disturbance, mood disturbance, and anxiety; N39.0 Urinary tract infection, site not specified; Z16.11 Resistance to penicillins; I10 Essential (primary) hypertension; F31.9 Bipolar disorder, unspecified; F20.9 Schizophrenia, unspecified; B96.20 Unspecified Escherichia coli [E. coli] as the cause of diseases classified elsewhere; Z79.4 Long term (current) use of insulin; Z86.73 Personal history of transient ischemic attack (TIA), and cerebral infarction without residual deficits; Z79.899 Other long term (current) drug therapy
CPT/HCPCS: 36415; 70450; 71010; 80053; 81001; 82962; 85025; 87086; 87186; 87641; 93005; J0690; J0696; J1630; J1815; J7030; P9612; 99285-25